=== PATIENT | female | born 1965 | race Native Hawaiian/Other Pacific Islander ===

== ENCOUNTER 2016-08-08 10:51 | Outpatient (CLI) | payer OTHER | END 2016-08-08 21:39 | disposition home or self-care (01) | LOC: RAD 10:51 | DX: G57.71 Causalgia of right lower limb (principal); M24.271 Disorder of ligament, right ankle; M24.874 Other specific joint derangements of right foot, not elsewhere classified; M72.2 Plantar fascial fibromatosis ==

== ENCOUNTER 2019-02-22 10:13 | Outpatient (CLI) | payer OTHER | END 2019-02-22 20:07 | disposition home or self-care (01) | LOC: MAMMO 10:13 | DX: Z12.31 Encounter for screening mammogram for malignant neoplasm of breast (principal); M81.0 Age-related osteoporosis without current pathological fracture ==

== ENCOUNTER 2019-03-14 10:10 | Outpatient (CLI) | payer OTHER | END 2019-03-14 20:23 | disposition home or self-care (01) | LOC: US 10:10 | DX: Z12.31 Encounter for screening mammogram for malignant neoplasm of breast (principal); N63.10 Unspecified lump in the right breast, unspecified quadrant ==

== ENCOUNTER 2020-03-30 11:12 | Outpatient (CLI) | payer OTHER | END 2020-03-30 22:21 | disposition home or self-care (01) | LOC: MRI 11:12 | PROVIDERS: ATTEND Orthopaedic Surgery | DX: M25.561 Pain in right knee (principal); R60.0 Localized edema ==

== ENCOUNTER 2022-12-17 12:41 | Outpatient (CLI) | payer OTHER | END 2022-12-17 19:08 | disposition home or self-care (01) | LOC: RAD 12:41 | PROVIDERS: ATTEND General Practice | DX: M79.671 Pain in right foot (principal); M25.571 Pain in right ankle and joints of right foot ==

== ENCOUNTER 2023-01-28 08:35 | Outpatient (CLI) | payer OTHER | END 2023-01-28 19:15 | disposition home or self-care (01) | LOC: MAMMO 08:35 | PROVIDERS: ATTEND General Practice | DX: Z12.31 Encounter for screening mammogram for malignant neoplasm of breast (principal); Z13.820 Encounter for screening for osteoporosis; N95.8 Other specified menopausal and perimenopausal disorders ==

== ENCOUNTER 2023-02-03 13:57 | Outpatient (CLI) | payer OTHER | END 2023-02-03 20:48 | disposition home or self-care (01) | LOC: MAMMO 13:57 | PROVIDERS: ATTEND General Practice | DX: R92.8 Other abnormal and inconclusive findings on diagnostic imaging of breast (principal) ==